=== PATIENT | female | born 1975 | race Two or more races ===

== ENCOUNTER → 2017-12-18 | Outpatient (CLI) | payer OTHER | END | disposition home or self-care (01) | LOC: MA 08:52 | PROC: BH02ZZZ Plain Radiography of Bilateral Breasts (ICD-10-PCS; principal; 2017-12-18) | DX: Z12.31 Encounter for screening mammogram for malignant neoplasm of breast (principal) | CPT/HCPCS: 77067 ==

== ENCOUNTER → 2018-09-06 | Outpatient (CLI) | payer OTHER | END | disposition home or self-care (01) | LOC: US 09-01 17:30 | PROC: BW4GZZZ Ultrasonography of Pelvic Region (ICD-10-PCS; principal; 2018-09-06) | DX: R10.2 Pelvic and perineal pain (principal) ==